=== PATIENT | female | born 1940 | race Caucasian/White ===

== ENCOUNTER → 2016-07-16 | Day surgery (SDC) | payer MEDICARE, MEDICAID ==
[~2016-07-16] VITALS: Ht 157.5 cm; Wt 57.0 kg
[~2016-07-16] MED LIST: /ALEN70TA; /AUGM875TA OR; /BACIOPOI TOP; /LINE60TA; /ONDA4TA; /ONDA4TA SL; /PANT40TA OR; ACET-71 PO; ACET30TAB PO; ACET65TA; ACETAMINOPHEN 325 MG TAB As Ordered ONE; ACETAMINOPHEN TAB 650MG DOSE (2X325MG) PO ONE; ALBU83IN INH; ASPI1TAB24 PO; ASPI81TA3; ATRO0.06 INH; BABY81CH; BABY81CH OR; BIOT50004 PO; CALC250T PO; CALCIUM/VITAMIN D; CHLO25TA PO; CIPR250T3; COLA100C2 OR; DIOV320T OR; FISH1000 PO; FISH300C2; FLAG500T; FOLI1TAB OR; GELATIN; GLUC500T; GLUC500T OR; HYDR200T3 PO; HYDR25TA6; HYDR25TA6 OR; IMODIUM PO; LIDOCAINE 2% W/EPIN INJ 20ML **PRES FREE As Ordered ONE; LIDOCAINE 4% INJ 5 ML AMP OU ONE; LR 1,000 ML IV SCH; METF500T PO; MIDAZOLAM INJ 2 MG/2 ML VIAL (J2250) As Ordered ONE; MULT1TAB10 PO; MULTIVIT; MULTIVIT PO; PERC5TAB8; PERC5TAB8 OR; PERC7.5T8; PERC7.5T8 OR; POVIDONE-IODINE 5% OPHTH PREP SOL 30ML As Ordered ONE; PRAV1TAB39 PO; SIMV10TA2; SIMV80TA OR; SODIUM BICARBONATE 8.4% INJ 50MEQ 50 ML VIAL As Ordered ONE; TETRACAINE 0.5% OPHTH SOLN 4ML As Ordered ONE; TOBRADEX OPHTH OINT 3.5 GM As Ordered ONE; TYL; TYLE500T78 PO; VALS1TAB46 PO; VALS40TA; VITA10006 PO; VITA200C; VITA400C29 PO; VITA500C OR; VITA50TA12; VITAMIN D50000 UNT; XANA0.25; XANA0.25 OR; ZETI10TA; ZINC220C OR; ZOFR8TAB; ZOVI5OIN; biotin; fentaNYL 100 MCG/2 ML INJECTION (J3010) As Ordered ONE; restasis; vitamin B3 PO
--- NOTE | 2016-07-16 09:33 | RO ---
DATE OF PROCEDURE: 07/16/2016 PREOPERATIVE DIAGNOSES: Ptosis and dermatochalasis both eyes. POSTPROCEDURE DIAGNOSES: Ptosis and dermatochalasis both eyes. PROCEDURE: Ptosis repair with bilateral blepharoplasty. SURGEON: Lacey Mccormick MD. FISH WARDEN: None. ANESTHESIA: Local IV standby. DESCRIPTION OF PROCEDURE: The patient was brought to the operating room and laid in supine position. The upper face was prepped and draped in a sterile fashion for opthalmic surgery. Both upper eye lids were then marked with a sterile marker and the upper lids were infiltrated with 2% lidocaine with 1:100,000 epinephrine. After waiting for 7 minutes with the help of the cautery, the upper lid margins were excised as marked. A deeper dissection was then carried out to isolate the elevator aponeurosis which was dehisced and was reattached using #6-0 nylon sutures. The position of the lid was assessed to be excellent and the lid was then closed using #6-0 nylon sutures. Exactly the same procedure was repeated for the left eye. At the end of the case, ice pack was applied and TobraDex ointment was placed over the eyes.
[2016-07-16 09:50] VITALS: BP 166/78
== END | disposition home or self-care (01) ==
LOC: M SDC 05:56
PROVIDERS: ATTEND Ophthalmology
DX: H02.831 Dermatochalasis of right upper eyelid (principal); H02.401 Unspecified ptosis of right eyelid; H02.402 Unspecified ptosis of left eyelid; I10 Essential (primary) hypertension; I50.9 Heart failure, unspecified; E11.9 Type 2 diabetes mellitus without complications; E78.00 Pure hypercholesterolemia, unspecified; M06.9 Rheumatoid arthritis, unspecified; R06.83 Snoring; F41.9 Anxiety disorder, unspecified; G47.9 Sleep disorder, unspecified; Z79.899 Other long term (current) drug therapy; Z79.82 Long term (current) use of aspirin; Z78.0 Asymptomatic menopausal state; Z96.1 Presence of intraocular lens
CPT/HCPCS: 15823; 88302; J2250; J3010

== ENCOUNTER 2016-07-19 13:03 | Emergency (ER) | payer MEDICARE, MEDICAID ==
[~2016-07-19] VITALS: Ht 160 cm; Wt 57.2 kg
[~2016-07-19 13:03] MED LIST changes: -ACET-71 PO; -ACET30TAB PO; -ACETAMINOPHEN 325 MG TAB As Ordered ONE; -ACETAMINOPHEN TAB 650MG DOSE (2X325MG) PO ONE; -LIDOCAINE 2% W/EPIN INJ 20ML **PRES FREE As Ordered ONE; -LIDOCAINE 4% INJ 5 ML AMP OU ONE; -LR 1,000 ML IV SCH; -MIDAZOLAM INJ 2 MG/2 ML VIAL (J2250) As Ordered ONE; -POVIDONE-IODINE 5% OPHTH PREP SOL 30ML As Ordered ONE; -SODIUM BICARBONATE 8.4% INJ 50MEQ 50 ML VIAL As Ordered ONE; -TETRACAINE 0.5% OPHTH SOLN 4ML As Ordered ONE; -TOBRADEX OPHTH OINT 3.5 GM As Ordered ONE; -fentaNYL 100 MCG/2 ML INJECTION (J3010) As Ordered ONE
--- NOTE | 2016-07-19 14:21 | REP ---
Clinical: Trauma. Technique: AP, lateral, bilateral oblique views of the left hand. Findings: Age-related osteopenia and degenerative changes are appreciated no obvious acute fracture or dislocation. Impression: Osteoarthritic degenerative changes and osteopenia. No acute fracture dislocation. Signed by Luke Arriola MD 07/19/2016 02:13 P
[2016-07-19 14:42] VITALS: BP 152/67
[2016-07-19] MEDS ORDERED: ACET-71 PO ×4 (14:46→15:01)
[2016-07-19] MEDS ORDERED: ACET30TAB PO (15:00)
== END 2016-07-19 15:08 | disposition home or self-care (01) ==
LOC: M ED 14:31
DX: S60.222A Contusion of left hand, initial encounter (principal); X58.XXXA Exposure to other specified factors, initial encounter; Y92.099 Unspecified place in other non-institutional residence as the place of occurrence of the external cause; Y93.89 Activity, other specified; Y99.9 Unspecified external cause status

== ENCOUNTER 2017-07-20 08:53 | Emergency (ER) | payer MEDICARE, MEDICAID ==
[2017-07-20] MEDS: DERMABOND TOPICAL SKIN ADHESIVE TOP (10:16)
[2017-07-20] MEDS: ADACEL/BOOSTRIX VACCINE (DIPHTH/PERTUSS/ACELL/TETANUS)0.5ML SYR (90715) IM (10:34)
== END 2017-07-20 10:48 | disposition home or self-care (01) ==
LOC: M ED 08:53
DX: S51.811A Laceration without foreign body of right forearm, initial encounter (principal); W10.8XXA Fall (on) (from) other stairs and steps, initial encounter; Y92.89 Other specified places as the place of occurrence of the external cause; I50.9 Heart failure, unspecified; E11.9 Type 2 diabetes mellitus without complications; K21.9 Gastro-esophageal reflux disease without esophagitis; M47.9 Spondylosis, unspecified; F41.9 Anxiety disorder, unspecified; F32.9 Major depressive disorder, single episode, unspecified; Z79.899 Other long term (current) drug therapy; Z79.82 Long term (current) use of aspirin
CPT/HCPCS: 90715

== ENCOUNTER 2019-03-10 11:13 | Emergency (ER) | payer MEDICARE, MEDICAID ==
[~2019-03-10] VITALS: Ht 160 cm; Wt 56.4 kg
[2019-03-10 11:13] VITALS: BP 142/86
[~2019-03-10 11:13] MED LIST changes: -/LINE60TA; -/ONDA4TA; -/ONDA4TA SL; -/PANT40TA OR; +ACET-716 PO; +ACET1TAB16 PO; +ASPI-161 PO; -ASPI1TAB24 PO; -METF500T PO; +METF500T13 PO; +ONDA-1; +ONDA-1 SL; +ONDA-227; +PROT1TAB2 OR; -VALS1TAB46 PO; +VALS1TAB66 PO; +VITA-110 PO; -VITA400C29 PO; -ZOFR8TAB; +ZYVO100T
[2019-03-10] MEDS ORDERED: DERMABOND TOPICAL SKIN ADHESIVE TOP ONE (12:15)
== END 2019-03-10 13:26 | disposition home or self-care (01) ==
LOC: M ED 11:13
DX: S81.812A Laceration without foreign body, left lower leg, initial encounter (principal); W22.8XXA Striking against or struck by other objects, initial encounter; Y92.018 Other place in single-family (private) house as the place of occurrence of the external cause; E11.9 Type 2 diabetes mellitus without complications; I50.9 Heart failure, unspecified; F33.9 Major depressive disorder, recurrent, unspecified; F41.9 Anxiety disorder, unspecified; Z79.899 Other long term (current) drug therapy; Z79.82 Long term (current) use of aspirin; Z87.891 Personal history of nicotine dependence

== ENCOUNTER → 2019-12-15 | Outpatient (REF) | payer MEDICARE, MEDICAID ==
[2019-12-16 14:32] LABS: ALBUMIN 3.7 GM/DL (3.2-5.2); BILIRUBIN,TOTAL 0.3 MG/DL (0.2-1.0); CALCIUM LEVEL 9.1 MG/DL (8.8-10.2); CREATININE FOR GFR 1.59 MG/DL (0.55-1.30); GLOMERULAR FILTRATION RATE 33.3 (>39); POTASSIUM SERUM 4.2 MEQ/L (3.5-5.1); TOTAL PROTEIN 6.9 GM/DL (6.4-8.2)
== END ==
LOC: M LABDRAWC 15:35
PROVIDERS: ATTEND Internal Medicine Rheumatology
DX: Z79.899 Other long term (current) drug therapy (principal)

== ENCOUNTER → 2020-06-09 | Outpatient (REF) | payer MEDICARE, MEDICAID ==
[2020-06-09 18:28] LABS: FERRITIN 44 NG/ML (8-252); IRON (FE) 53 UG/DL (50-170); PERCENT SATURATION 14.6 % (13.2-45.0); TOTAL IRON BINDING CAPACITY 363 UG/DL (250-450); TOTAL PROTEIN 6.9 GM/DL (6.4-8.2)
[2020-06-09 18:34] LABS: FOLATE 22.4 NG/ML; VITAMIN B12 LEVEL 1639 PG/ML
[2020-06-10 10:59] LABS: ALBUMIN 4.13 GM/DL (3.29-5.55); ALBUMIN % 59.8 % (55.8-66.1); ALPHA-1-GLOBULIN % 4.5 % (2.9-4.9); ALPHA-1-GLOBULINS 0.31 GM/DL (0.17-0.41); ALPHA-2-GLOBULINS 0.81 GM/DL (0.42-0.99); ALPHA-2-GLOBULINS % 11.8 % (7.1-11.8); BETA-1-GLOBULINS 0.46 GM/DL (0.28-0.60); BETA-1-GLOBULINS % 6.7 % (4.7-7.2); BETA-2-GLOBULINS % 5.8 % (3.2-6.5); GAMMA GLOBULIN % 11.4 % (11.1-18.8); GAMMA GLOBULINS 0.79 GM/DL (0.65-1.58)
[2020-06-11 18:06] LABS: FREE LAMBDA LIGHT CHAINS SERUM 31.1 mg/L (5.7-26.3); KAPPA/LAMBDA RATIO SERUM 1.48 (0.26-1.65)
== END ==
LOC: M LAB REF 17:03
PROVIDERS: ATTEND Internal Medicine Nephrology
DX: D64.9 Anemia, unspecified (principal)

== ENCOUNTER → 2020-06-22 | Outpatient (CLI) | payer MEDICARE, MEDICAID ==
--- NOTE | 2020-06-22 08:08 | REP ---
INDICATION: CKD STAGE 3B, ANEMIA, HYPERPARATHYROIDISM COMPARISON: None TECHNIQUE: Real time link scale ultrasound examination using curved array transducer. FINDINGS: Bilateral kidneys are normal in reniform shape and echogenicity with increased central sinus fat consistent with chronic medical renal disease. No hydronephrosis, nephrolithiasis, cystic or renal mass lesion appreciated. Right kidney measures 8.3 x 5.4 x 4.1 cm. Left kidney measures 8.7 x 4.1 x 4.6 cm. IMPRESSION: 1. Findings consistent with chronic medical renal disease. 2. No hydronephrosis or acute renal process appreciated. <Electronically signed by Luke Arriola > 06/22/20 [id number]
--- NOTE | 2020-06-22 08:10 | REP ---
INDICATION: CKD STAGE 3B, ANEMIA, HYPERPARATHYROIDISM COMPARISON: None TECHNIQUE: Real time B-mode ultrasound examination using curved array transducer. FINDINGS: Bladder is relatively normal in appearance although prevoid images demonstrate incomplete distension/filling. No obvious irregular wall thickening or mass lesion identified. Prevoid bladder measures 6.6 x 5.0 x 7.6 cm (164 cc). Postvoid bladder measures 0 x 0 x 0 cm (0 cc). Postvoid residual: 0% IMPRESSION: 1. Normal bladder ultrasound as visualized. <Electronically signed by Luke Arriola > 06/22/20 [id number]
== END ==
LOC: M RAD 06:36
PROVIDERS: ATTEND Internal Medicine Nephrology
DX: N18.32 Chronic kidney disease, stage 3b (principal); I12.9 Hypertensive chronic kidney disease with stage 1 through stage 4 chronic kidney disease, or unspecified chronic kidney disease; N25.81 Secondary hyperparathyroidism of renal origin; D64.9 Anemia, unspecified

== ENCOUNTER → 2020-10-27 | Outpatient (REF) | payer MEDICARE, MEDICAID | LOC: M LAB REF 17:13 | PROVIDERS: ATTEND Internal Medicine Nephrology | DX: N18.31 Chronic kidney disease, stage 3a (principal) ==

== ENCOUNTER → 2021-07-21 | Outpatient (REF) | payer MEDICARE, MEDICAID ==
[2021-07-21 18:12] LABS: PERCENT SATURATION 10.8 % (13.2-45.0)
[2021-07-24 19:08] LABS: FOLATE 6.9 NG/ML
== END ==
LOC: M LAB REF 17:05
PROVIDERS: ATTEND Nurse Practitioner Family
DX: D50.9 Iron deficiency anemia, unspecified (principal); D51.9 Vitamin B12 deficiency anemia, unspecified

== ENCOUNTER 2022-05-11 12:29 | Inpatient (IN) | payer MEDICARE, MEDICAID ==
[~2022-05-11] VITALS: Ht 160 cm; Wt 59.8 kg
[~2022-05-11 12:29] MED LIST changes: -ACET1TAB16 PO; +ACET300T48 PO
[2022-05-11] MEDS ORDERED: AMLO2.5C6 PO (12:43)
[2022-05-11] MEDS ORDERED: DULO1CAP4 PO (12:45)
[2022-05-11] MEDS ORDERED: CALC1CAP31 PO (12:45)
[2022-05-11] MEDS ORDERED: LOSA50TA28 PO (12:45)
[2022-05-11] MEDS ORDERED: BACITRACIN OINTMENT 30GM TUBE TOP ONE (14:45)
[2022-05-11] MEDS ORDERED: BOOSTRIX/ADACEL VACCINE (DIPHTH/PERTUSS/ACELL/TETANUS) 0.5ML SYR IM.IMMUN ONE (14:45)
[2022-05-11] MEDS ORDERED: LIDOCAINE 1% MDV 20ML VIAL SC ONE (14:45)
[2022-05-11] MEDS ORDERED: GLUCAGON INJ 1MG VIAL SC PRN (16:00)
[2022-05-11] MEDS ORDERED: GLUCOSE 4GM CHEW TABLET PO PRN (16:00)
[2022-05-11] MEDS ORDERED: NS 500 ML IV ONE (16:00)
[2022-05-11] MEDS ORDERED: DEXTROSE 50% 50ML SYRINGE IV PRN (16:00)
[2022-05-11] MEDS ORDERED: NALOXONE INJ 0.4MG/1ML VIAL IV PRN (16:05)
[2022-05-11] MEDS ORDERED: MIRALAX *UNIT DOSE* 17GM PACKET PO PRN (16:05)
[2022-05-11] MEDS ORDERED: SENOKOT S TAB PO PRN (16:05)
[2022-05-11] MEDS: HYDROMORPHONE HCL 0.5 MG/ 0.5 ML SYRINGE IV ONE ×2 (16:05→16:27)
[2022-05-11] MEDS ORDERED: MOM 30ML SUSPENSION UDC PO PRN (16:05)
[2022-05-11] MEDS ORDERED: NS 1,000 ML IV ONE (16:05)
[2022-05-11] MEDS ORDERED: ACETAMINOPHEN 1000MG 100ML IV BAG IV ONE (16:15)
[2022-05-11] MEDS ORDERED: ACET500T15 PO (16:34)
[2022-05-11] MEDS ORDERED: AMLO25TA PO (16:34)
[2022-05-11] MEDS ORDERED: REST0.05 OU (16:34)
[2022-05-11] MEDS ORDERED: PRAV20TA2 PO (16:34)
[2022-05-11] MEDS ORDERED: FERA1TAB PO (16:34)
[2022-05-11] MEDS ORDERED: OMEGCAP4 PO (16:34)
[2022-05-11] MEDS ORDERED: B-COTAB10 PO (16:34)
[2022-05-11] MEDS ORDERED: HOME MED LIST COMPLETE! XX SCH (16:35)
[2022-05-11 16:39] LABS: BASO % 0.2 % (0.0-1.0); EOS % 0.3 % (0.0-3.0); HEMOGLOBIN 10.4 g/dl (12.0-15.5); LYMPH # 1.2 10^3/uL (1.5-5.0); LYMPH % 8.9 % (24.0-44.0); MEAN CORPUSCULAR HEMOGLOBIN 30.1 pg (27.0-33.0); MEAN CORPUSCULAR HGB CONC 32.5 g/dl (32.0-36.5); MEAN CORPUSCULAR VOLUME 92.8 fl (80.0-96.0); MONO # 0.5 10^3/uL (0.0-0.8); NEUTROPHILS # 11.3 10^3/uL (1.5-8.5); NEUTROPHILS % 86.1 % (36.0-66.0); PLATELET COUNT, AUTOMATED 293 10^3/uL (150-450); RED BLOOD COUNT 3.45 10^6/uL (4.00-5.40); WHITE BLOOD COUNT 13.1 10^3/uL (4.0-10.0)
[2022-05-11 17:06] LABS: CALCIUM LEVEL 9.2 MG/DL (8.3-10.6); CREATININE FOR GFR 1.04 MG/DL (0.55-1.30); GLOMERULAR FILTRATION RATE 54.1 (>32)
[2022-05-11] MEDS ORDERED: INSULIN LISPRO (NovoLOG) PER UNIT SC SCH ×2 (17:30→21:00)
[2022-05-11 17:38] LABS: RSV AMPLIFICATION NEGATIVE (NEGATIVE)
[2022-05-11] MEDS: PERCOCET 5MG/325MG TAB PO SCH (18:00)
[2022-05-11] MEDS ORDERED: amLODIPine 5 MG TAB PO ONE (18:25)
[2022-05-11] MEDS ORDERED: LOSARTAN 50MG TABLET PO ONE (18:25)
[2022-05-11] MEDS: cloNIDine 0.1MG TABLET PO SCH (18:42)
[2022-05-11] MEDS: hydrALAZINE 20MG/ML 1ML VIAL IV SCH ×2 (19:00→22:54)
[2022-05-11 22:40] VITALS: BP_SYST 152; BP_SYST 172; BP_DIAS 77; BP_DIAS 78
[2022-05-11] MEDS: ACETAMINOPHEN TAB 650MG DOSE (2X325MG) PO PRN (22:54)
[2022-05-12] VITALS (24 sets, daily range): BP systolic 110–142; BP diastolic 53–64; O2SAT 93–100
[2022-05-12] MEDS: HYDROXYCHLOROQUINE 200 MG TAB PO SCH ×2 (01:13→20:05)
[2022-05-12] MEDS: hydrALAZINE 20MG/ML 1ML VIAL IV SCH ×2 (03:00→06:12)
[2022-05-12 04:10] LABS: BASO % 0.1 % (0.0-1.0); EOS # 0.1 10^3/uL (0.0-0.5); EOS % 0.6 % (0.0-3.0); HEMATOCRIT 25.1 % (36.0-47.0); LYMPH # 1.6 10^3/uL (1.5-5.0); LYMPH % 20.9 % (24.0-44.0); MEAN CORPUSCULAR HEMOGLOBIN 30.1 pg (27.0-33.0); MEAN CORPUSCULAR HGB CONC 32.7 g/dl (32.0-36.5); MEAN CORPUSCULAR VOLUME 92.3 fl (80.0-96.0); MONO # 0.6 10^3/uL (0.0-0.8); MONO % 7.8 % (2.0-8.0); NEUTROPHILS # 5.5 10^3/uL (1.5-8.5); NEUTROPHILS % 70.2 % (36.0-66.0); PLATELET COUNT, AUTOMATED 230 10^3/uL (150-450); RED BLOOD COUNT 2.72 10^6/uL (4.00-5.40); WHITE BLOOD COUNT 7.8 10^3/uL (4.0-10.0)
[2022-05-12 04:12] LABS: HEMOGLOBIN 8.2 g/dl (12.0-15.5)
[2022-05-12 04:34] LABS: BLOOD UREA NITROGEN 27 MG/DL (9-23); CALCIUM LEVEL 8.6 MG/DL (8.3-10.6); CARBON DIOXIDE LEVEL 24 MMOL/L (20-31); CHLORIDE LEVEL 106 MMOL/L (98-107); CREATININE FOR GFR 0.88 MG/DL (0.55-1.30); GLOMERULAR FILTRATION RATE > 60.0 (>32); GLUCOSE, FASTING 106 MG/DL (74-106); POTASSIUM SERUM 3.7 MMOL/L (3.5-5.1); SODIUM LEVEL 137 MMOL/L (136-145)
[2022-05-12] MEDS: PERCOCET 5MG/325MG TAB PO SCH ×5 (06:00→23:54)
[2022-05-12] MEDS: cloNIDine 0.1MG TABLET PO SCH ×2 (06:00)
[2022-05-12] MEDS: LOSARTAN 50MG TABLET PO SCH (08:33)
[2022-05-12] MEDS: DULoxetine 20MG CAP (CYMBALTA) PO SCH (08:33)
[2022-05-12] MEDS: OMEGA-3 1000MG CAPSULE PO SCH (08:34)
[2022-05-12] MEDS: PRAVASTATIN 20 MG TAB PO SCH (08:34)
[2022-05-12] MEDS: ASPIRIN 81MG ENTERIC TABLET PO SCH (08:34)
[2022-05-12] MEDS: ACETAMINOPHEN TAB 650MG DOSE (2X325MG) PO PRN ×3 (08:36→21:17)
[2022-05-12] MEDS ORDERED: CALCITRIOL 0.25 MCG CAP (S0169) PO SCH (09:00)
[2022-05-12] MEDS ORDERED: ACETAMINOPHEN 500 MG TAB PO SCH (09:00)
[2022-05-12 09:08] LABS: HEMOGLOBIN A1c 5.4 % (4.0-6.0)
[2022-05-13] VITALS (28 sets, daily range): BP systolic 122–158; BP diastolic 58–68; O2SAT 98–100
[2022-05-13 05:37] LABS: BASO % 0.3 % (0.0-1.0); EOS # 0.2 10^3/uL (0.0-0.5); HEMOGLOBIN 8.1 g/dl (12.0-15.5); LYMPH # 1.6 10^3/uL (1.5-5.0); LYMPH % 24.1 % (24.0-44.0); MEAN CORPUSCULAR HEMOGLOBIN 29.6 pg (27.0-33.0); MEAN CORPUSCULAR HGB CONC 31.2 g/dl (32.0-36.5); MEAN CORPUSCULAR VOLUME 94.9 fl (80.0-96.0); MONO # 0.6 10^3/uL (0.0-0.8); MONO % 9.3 % (2.0-8.0); NEUTROPHILS # 4.2 10^3/uL (1.5-8.5); PLATELET COUNT, AUTOMATED 231 10^3/uL (150-450); RED BLOOD COUNT 2.74 10^6/uL (4.00-5.40); WHITE BLOOD COUNT 6.6 10^3/uL (4.0-10.0)
[2022-05-13 06:00] LABS: CALCIUM LEVEL 8.6 MG/DL (8.3-10.6); GLOMERULAR FILTRATION RATE 56.6 (>32); POTASSIUM SERUM 4.2 MMOL/L (3.5-5.1)
[2022-05-13] MEDS: PERCOCET 5MG/325MG TAB PO SCH ×3 (06:00→17:19)
[2022-05-13] MEDS: ACETAMINOPHEN TAB 650MG DOSE (2X325MG) PO PRN ×4 (06:28→21:49)
[2022-05-13] MEDS: LACTOBACILLUS ACIDOPHILUS CAP (BACID) PO SCH ×3 (08:00→17:17)
[2022-05-13] MEDS: PRAVASTATIN 20 MG TAB PO SCH (09:45)
[2022-05-13] MEDS: CEFDINIR 300 MG CAP (OMNICEF) PO SCH ×2 (09:45→20:14)
[2022-05-13] MEDS: DOXYCYCLINE HYCLATE 100MG TABLET PO SCH ×2 (09:45→20:14)
[2022-05-13] MEDS: DULoxetine 20MG CAP (CYMBALTA) PO SCH (09:45)
[2022-05-13] MEDS: OMEGA-3 1000MG CAPSULE PO SCH (09:45)
[2022-05-13] MEDS: ASPIRIN 81MG ENTERIC TABLET PO SCH (09:45)
[2022-05-13] MEDS: LOSARTAN 50MG TABLET PO SCH (09:46)
[2022-05-13] MEDS: HYDROXYCHLOROQUINE 200 MG TAB PO SCH (20:14)
[2022-05-14] VITALS (25 sets, daily range): BP systolic 130–168; BP diastolic 57–72; O2SAT 96–100
[2022-05-14] MEDS: PERCOCET 5MG/325MG TAB PO SCH ×4 (03:28→17:48)
[2022-05-14 05:37] LABS: BASO % 0.3 % (0.0-1.0); EOS # 0.3 10^3/uL (0.0-0.5); EOS % 4.1 % (0.0-3.0); HEMATOCRIT 26.6 % (36.0-47.0); HEMOGLOBIN 8.4 g/dl (12.0-15.5); LYMPH # 1.8 10^3/uL (1.5-5.0); LYMPH % 29.6 % (24.0-44.0); MEAN CORPUSCULAR HEMOGLOBIN 30.1 pg (27.0-33.0); MEAN CORPUSCULAR HGB CONC 31.6 g/dl (32.0-36.5); MEAN CORPUSCULAR VOLUME 95.3 fl (80.0-96.0); MONO # 0.6 10^3/uL (0.0-0.8); MONO % 9.8 % (2.0-8.0); NEUTROPHILS # 3.4 10^3/uL (1.5-8.5); NEUTROPHILS % 55.9 % (36.0-66.0); RED BLOOD COUNT 2.79 10^6/uL (4.00-5.40); WHITE BLOOD COUNT 6.1 10^3/uL (4.0-10.0)
[2022-05-14 06:02] LABS: CALCIUM LEVEL 8.6 MG/DL (8.3-10.6); CREATININE FOR GFR 0.96 MG/DL (0.55-1.30); GLOMERULAR FILTRATION RATE 59.4 (>32); POTASSIUM SERUM 4.4 MMOL/L (3.5-5.1)
[2022-05-14] MEDS: ASPIRIN 81MG ENTERIC TABLET PO SCH (08:31)
[2022-05-14] MEDS: LACTOBACILLUS ACIDOPHILUS CAP (BACID) PO SCH ×3 (08:31→17:48)
[2022-05-14] MEDS: DOXYCYCLINE HYCLATE 100MG TABLET PO SCH ×2 (08:31→20:46)
[2022-05-14] MEDS: CEFDINIR 300 MG CAP (OMNICEF) PO SCH ×2 (08:31→20:44)
[2022-05-14] MEDS: CALCITRIOL 0.25 MCG CAP (S0169) PO SCH (08:31)
[2022-05-14] MEDS: PRAVASTATIN 20 MG TAB PO SCH (08:31)
[2022-05-14] MEDS: DULoxetine 20MG CAP (CYMBALTA) PO SCH (08:32)
[2022-05-14] MEDS: LOSARTAN 50MG TABLET PO SCH (08:32)
[2022-05-14] MEDS: OMEGA-3 1000MG CAPSULE PO SCH (08:32)
[2022-05-14] MEDS: ACETAMINOPHEN TAB 650MG DOSE (2X325MG) PO PRN ×2 (09:32→20:45)
[2022-05-14] MEDS ORDERED: LIDOCAINE 1% MDV 20ML VIAL As Ordered ONE (13:55)
[2022-05-14] MEDS: HYDROXYCHLOROQUINE 200 MG TAB PO SCH (20:44)
[2022-05-15] VITALS (17 sets, daily range): BP systolic 134–176; BP diastolic 60–80; O2SAT 100
[2022-05-15] MEDS ORDERED: hydrALAZINE 20MG/ML 1ML VIAL IV ONE (04:00)
[2022-05-15 04:25] LABS: BASO % 0.4 % (0.0-1.0); EOS # 0.3 10^3/uL (0.0-0.5); EOS % 3.6 % (0.0-3.0); HEMATOCRIT 27.2 % (36.0-47.0); HEMOGLOBIN 8.4 g/dl (12.0-15.5); LYMPH % 29.3 % (24.0-44.0); MEAN CORPUSCULAR HEMOGLOBIN 29.9 pg (27.0-33.0); MEAN CORPUSCULAR HGB CONC 30.9 g/dl (32.0-36.5); MEAN CORPUSCULAR VOLUME 96.8 fl (80.0-96.0); MONO # 0.7 10^3/uL (0.0-0.8); MONO % 9.5 % (2.0-8.0); NEUTROPHILS # 3.9 10^3/uL (1.5-8.5); NEUTROPHILS % 57.1 % (36.0-66.0); PLATELET COUNT, AUTOMATED 260 10^3/uL (150-450); RED BLOOD COUNT 2.81 10^6/uL (4.00-5.40); WHITE BLOOD COUNT 6.9 10^3/uL (4.0-10.0)
[2022-05-15 04:48] LABS: BLOOD UREA NITROGEN 24 MG/DL (9-23); CALCIUM LEVEL 9.1 MG/DL (8.3-10.6); CARBON DIOXIDE LEVEL 22 MMOL/L (20-31); CHLORIDE LEVEL 109 MMOL/L (98-107); GLOMERULAR FILTRATION RATE > 60.0 (>32); GLUCOSE, FASTING 91 MG/DL (74-106); POTASSIUM SERUM 4.7 MMOL/L (3.5-5.1); SODIUM LEVEL 140 MMOL/L (136-145)
[2022-05-15] MEDS: PERCOCET 5MG/325MG TAB PO SCH ×4 (06:00→18:00)
[2022-05-15] MEDS: ASPIRIN 81MG ENTERIC TABLET PO SCH (08:52)
[2022-05-15] MEDS: CEFDINIR 300 MG CAP (OMNICEF) PO SCH ×2 (08:52→20:59)
[2022-05-15] MEDS: LACTOBACILLUS ACIDOPHILUS CAP (BACID) PO SCH ×3 (08:52→18:40)
[2022-05-15] MEDS: DOXYCYCLINE HYCLATE 100MG TABLET PO SCH ×2 (08:53→20:59)
[2022-05-15] MEDS: LOSARTAN 50MG TABLET PO SCH (08:53)
[2022-05-15] MEDS: PRAVASTATIN 20 MG TAB PO SCH (08:53)
[2022-05-15] MEDS: DULoxetine 20MG CAP (CYMBALTA) PO SCH (08:53)
[2022-05-15] MEDS: OMEGA-3 1000MG CAPSULE PO SCH (08:53)
[2022-05-15] MEDS: HYDROXYCHLOROQUINE 200 MG TAB PO SCH (20:59)
[2022-05-15] MEDS: ACETAMINOPHEN TAB 650MG DOSE (2X325MG) PO PRN (21:00)
[2022-05-16] VITALS (15 sets, daily range): BP systolic 135–150; BP diastolic 52–66; O2SAT 97–100
[2022-05-16 04:16] LABS: BASO % 0.3 % (0.0-1.0); EOS # 0.3 10^3/uL (0.0-0.5); EOS % 4.1 % (0.0-3.0); HEMATOCRIT 26.9 % (36.0-47.0); HEMOGLOBIN 8.4 g/dl (12.0-15.5); MEAN CORPUSCULAR HGB CONC 31.2 g/dl (32.0-36.5); MEAN CORPUSCULAR VOLUME 96.1 fl (80.0-96.0); MONO # 0.5 10^3/uL (0.0-0.8); MONO % 7.7 % (2.0-8.0); NEUTROPHILS # 3.5 10^3/uL (1.5-8.5); NEUTROPHILS % 55.6 % (36.0-66.0); PLATELET COUNT, AUTOMATED 263 10^3/uL (150-450); WHITE BLOOD COUNT 6.4 10^3/uL (4.0-10.0)
[2022-05-16 04:42] LABS: BLOOD UREA NITROGEN 26 MG/DL (9-23); CALCIUM LEVEL 8.6 MG/DL (8.3-10.6); CARBON DIOXIDE LEVEL 25 MMOL/L (20-31); CHLORIDE LEVEL 108 MMOL/L (98-107); CREATININE FOR GFR 0.89 MG/DL (0.55-1.30); GLOMERULAR FILTRATION RATE > 60.0 (>32); GLUCOSE, FASTING 93 MG/DL (74-106); POTASSIUM SERUM 4.3 MMOL/L (3.5-5.1); SODIUM LEVEL 139 MMOL/L (136-145)
[2022-05-16] MEDS: PERCOCET 5MG/325MG TAB PO SCH ×2 (05:13)
[2022-05-16] MEDS: CALCITRIOL 0.25 MCG CAP (S0169) PO SCH (09:29)
[2022-05-16] MEDS: LACTOBACILLUS ACIDOPHILUS CAP (BACID) PO SCH ×3 (09:29→17:28)
[2022-05-16] MEDS: PRAVASTATIN 20 MG TAB PO SCH (09:29)
[2022-05-16] MEDS: DOXYCYCLINE HYCLATE 100MG TABLET PO SCH ×2 (09:29→20:24)
[2022-05-16] MEDS: CEFDINIR 300 MG CAP (OMNICEF) PO SCH ×2 (09:29→20:24)
[2022-05-16] MEDS: ASPIRIN 81MG ENTERIC TABLET PO SCH (09:29)
[2022-05-16] MEDS: OMEGA-3 1000MG CAPSULE PO SCH (09:29)
[2022-05-16] MEDS: ACETAMINOPHEN TAB 650MG DOSE (2X325MG) PO PRN ×2 (09:30→20:20)
[2022-05-16] MEDS: LOSARTAN 50MG TABLET PO SCH (09:30)
[2022-05-16] MEDS: DULoxetine 20MG CAP (CYMBALTA) PO SCH (09:30)
[2022-05-16] MEDS ORDERED: PERCOCET 5MG/325MG TAB PO PRN (12:25)
[2022-05-16] MEDS: HYDROXYCHLOROQUINE 200 MG TAB PO SCH (20:24)
[2022-05-17 00:08] VITALS: BP 140/65
[2022-05-17 04:13] LABS: BASO % 0.6 % (0.0-1.0); EOS # 0.2 10^3/uL (0.0-0.5); EOS % 3.7 % (0.0-3.0); HEMATOCRIT 27.1 % (36.0-47.0); HEMOGLOBIN 8.7 g/dl (12.0-15.5); LYMPH # 2.4 10^3/uL (1.5-5.0); LYMPH % 36.5 % (24.0-44.0); MEAN CORPUSCULAR HEMOGLOBIN 30.3 pg (27.0-33.0); MEAN CORPUSCULAR HGB CONC 32.1 g/dl (32.0-36.5); MEAN CORPUSCULAR VOLUME 94.4 fl (80.0-96.0); MONO # 0.5 10^3/uL (0.0-0.8); MONO % 7.8 % (2.0-8.0); NEUTROPHILS # 3.3 10^3/uL (1.5-8.5); NEUTROPHILS % 51.2 % (36.0-66.0); PLATELET COUNT, AUTOMATED 285 10^3/uL (150-450); RED BLOOD COUNT 2.87 10^6/uL (4.00-5.40); WHITE BLOOD COUNT 6.5 10^3/uL (4.0-10.0)
[2022-05-17 04:15] VITALS: BP 144/66
[2022-05-17 04:42] LABS: BLOOD UREA NITROGEN 28 MG/DL (9-23); CALCIUM LEVEL 9.2 MG/DL (8.3-10.6); CARBON DIOXIDE LEVEL 24 MMOL/L (20-31); CHLORIDE LEVEL 107 MMOL/L (98-107); CREATININE FOR GFR 0.95 MG/DL (0.55-1.30); GLOMERULAR FILTRATION RATE > 60.0 (>32); GLUCOSE, FASTING 98 MG/DL (74-106); SODIUM LEVEL 139 MMOL/L (136-145)
[2022-05-17 07:47] VITALS: BP 160/69
[2022-05-17] MEDS: ASPIRIN 81MG ENTERIC TABLET PO SCH (09:06)
[2022-05-17] MEDS: LACTOBACILLUS ACIDOPHILUS CAP (BACID) PO SCH (09:07)
[2022-05-17] MEDS: OMEGA-3 1000MG CAPSULE PO SCH (09:07)
[2022-05-17] MEDS: DOXYCYCLINE HYCLATE 100MG TABLET PO SCH (09:07)
[2022-05-17] MEDS: PRAVASTATIN 20 MG TAB PO SCH (09:07)
[2022-05-17] MEDS: DULoxetine 20MG CAP (CYMBALTA) PO SCH (09:07)
[2022-05-17 09:11] VITALS: BP 166/74
[2022-05-17] MEDS: LOSARTAN 50MG TABLET PO SCH (09:11)
[2022-05-17] MEDS: CEFDINIR 300 MG CAP (OMNICEF) PO SCH (09:17)
[2022-05-17] MEDS ORDERED: CEFD300CAP PO (10:31)
[2022-05-17 11:55] VITALS: BP 124/62
== END 2022-05-17 12:41 | disposition home health service (06) | DRG 199 ==
LOC: M ED 12:29 → M ED INP 15:55 → M PCU 22:42
PROVIDERS: ADMIT General Practice; ATTEND Family Medicine
PROC: 0HQDXZZ Repair Right Lower Arm Skin, External Approach (ICD-10-PCS; 2022-05-11)
PROC: 0W9930Z Drainage of Right Pleural Cavity with Drainage Device, Percutaneous Approach (ICD-10-PCS; principal; 2022-05-14 12:00)
DX: S27.0XXA Traumatic pneumothorax, initial encounter (principal); J96.01 Acute respiratory failure with hypoxia; J18.9 Pneumonia, unspecified organism; I50.32 Chronic diastolic (congestive) heart failure; S22.41XA Multiple fractures of ribs, right side, initial encounter for closed fracture; J90 Pleural effusion, not elsewhere classified; I13.0 Hypertensive heart and chronic kidney disease with heart failure and stage 1 through stage 4 chronic kidney disease, or unspecified chronic kidney disease; W18.09XA Striking against other object with subsequent fall, initial encounter; Y92.89 Other specified places as the place of occurrence of the external cause; Y93.89 Activity, other specified; Y99.2 Volunteer activity; N18.30 Chronic kidney disease, stage 3 unspecified; E78.5 Hyperlipidemia, unspecified; E11.22 Type 2 diabetes mellitus with diabetic chronic kidney disease; M54.2 Cervicalgia; S51.811A Laceration without foreign body of right forearm, initial encounter; M25.562 Pain in left knee; G89.29 Other chronic pain; M06.9 Rheumatoid arthritis, unspecified; Z90.49 Acquired absence of other specified parts of digestive tract; Z87.81 Personal history of (healed) traumatic fracture; Z98.49 Cataract extraction status, unspecified eye; I16.0 Hypertensive urgency; R32 Unspecified urinary incontinence; Z79.82 Long term (current) use of aspirin; Z79.899 Other long term (current) drug therapy

== ENCOUNTER 2022-07-06 15:19 | Emergency (ER) | payer MEDICARE, MEDICAID ==
[~2022-07-06] VITALS: Ht 160 cm; Wt 55.0 kg
[~2022-07-06 15:19] MED LIST changes: +ACET500T15 PO; +AMLO2.5C6 PO; +AMLO25TA PO; +B-COTAB10 PO; +CALC1CAP31 PO; +CEFD300CAP PO; +DULO1CAP4 PO; +FERA1TAB PO; +LOSA50TA28 PO; +OMEGCAP4 PO; +PRAV20TA2 PO; +REST0.05 OU
[2022-07-06 23:41] VITALS: BP 170/78
[2022-07-07] MEDS ORDERED: LIDOCAINE 4% CREAM 5GM (LMX4) TOP ONE (01:10)
== END 2022-07-07 04:05 | disposition home or self-care (01) ==
LOC: M ED 15:19
DX: M79.662 Pain in left lower leg (principal); I50.9 Heart failure, unspecified; E11.9 Type 2 diabetes mellitus without complications; I10 Essential (primary) hypertension; K21.9 Gastro-esophageal reflux disease without esophagitis; M06.9 Rheumatoid arthritis, unspecified; F17.200 Nicotine dependence, unspecified, uncomplicated; Z79.82 Long term (current) use of aspirin; Z79.899 Other long term (current) drug therapy

== ENCOUNTER → 2023-05-24 | Outpatient (CLI) | payer MEDICARE, MEDICAID ==
[~2023-05-24] MED LIST changes: -BIOT50004 PO; +BIOT5CAP8 PO; -HYDR200T3 PO; +HYDR200T46 PO
== END ==
LOC: M RAD 14:02
PROVIDERS: ATTEND Physician Assistant
DX: M79.605 Pain in left leg (principal)